=== PATIENT | female | born 1975 | race Caucasian/White ===

== ENCOUNTER 2016-06-17 12:18 | Emergency (ER) | payer OTHER | END 2016-06-17 12:36 | disposition left against medical advice (07) | LOC: UCCORT 12:18 | DX: R05 Cough (principal); Z88.1 Allergy status to other antibiotic agents; Z88.6 Allergy status to analgesic agent; Z53.20 Procedure and treatment not carried out because of patient's decision for unspecified reasons ==

== ENCOUNTER 2017-03-16 18:40 | Emergency (ER) | payer OTHER ==
[2017-03-16 19:12] VITALS: BP 103/66
--- NOTE | 2017-03-16 19:18 | UC ---
Throat Pain/Nasal Mundo HPI - HPI Summary HPI Summary: 42 year old female presents with complains sore throat, cough and chest congestion. - History of Current Complaint Chief Complaint: UCRespiratory Stated Complaint: SINUSES/COUGH Time Seen by Provider: 03/16/17 19:17 Hx Obtained From: Patient Hx Last Menstrual Period: 05/2015 states this is normal Severity: Moderate Pain Scale Used: 0-10 Numeric - 5 Cough: Nonproductive - Allergies/Home Medications Allergies/Adverse Reactions: Allergies Allergy/AdvReac Type Severity Reaction Status Date / Time Amoxicillin Allergy hives and Verified 03/16/17 19:06 vomiting Aspirin Allergy hives and Verified 03/16/17 19:06 vomiting PMH/Surg Hx/FS Hx/Imm Hx Previously Healthy: Yes - Surgical History Surgical History: Yes Surgery Procedure, Year, and Place: t/a as child. - Family History Known Family History: Positive: None - Social History Alcohol Use: None Substance Use Type: None Smoking Status (MU): Former Smoker When Did the Patient Quit Smoking/Using Tobacco: 2009 - Immunization History Most Recent Influenza Vaccination: NONE Most Recent Tetanus Shot: 2014 Review of Systems Constitutional: Negative Skin: Negative Eyes: Negative ENT: Sore Throat, Nasal Discharge, Sinus Congestion, Sinus Pain/Tenderness Respiratory: Shortness Of Breath, Cough Cardiovascular: Negative Gastrointestinal: Negative Genitourinary: Negative Motor: Negative Neurovascular: Negative Musculoskeletal: Negative Neurological: Negative Psychological: Negative All Other Systems Reviewed And Are Negative: Yes Physical Exam Triage Information Reviewed: Yes Vital Signs: Initial Vital Signs Temp 36.3 C 03/16/17 19:07 Pulse 87 03/16/17 19:07 Resp 18 03/16/17 19:07 BP 103/66 03/16/17 19:07 Pulse Ox 99 03/16/17 19:07 Vital Signs Reviewed: Yes Eye Exam: Normal ENT Exam: Normal Dental Exam: Normal Neck exam: Normal Neck: Positive: 1 Respiratory: Positive: Rhonchi, Wheezing Cardiovascular Exam: Normal Abdominal Exam: Normal Musculoskeletal Exam: Normal Neurological Exam: Normal Psychological Exam: Normal Skin Exam: Normal Throat Pain/Nasal Course/Dx - Differential Dx/Diagnosis Provider Diagnoses: cough. sinus congestion. fever Discharge - Discharge Plan Condition: Stable Disposition: HOME Prescriptions: Albuterol HFA INHALER* [Ventolin HFA Inhaler*] 1 puff INH Q6H PRN #1 mdi PRN Reason: Wheezing Azithromyxin MAGGIE (NF) [Z-Maggie (Zithromax) 250 mg tabs #6] 2 tab PO .TODAY, THEN 1 DAILY #6 tab Guaifenesin-Codeine [Cheratussin AC] 1 teasp PO BEDTIME PRN #120 ml MDD 5 ml PRN Reason: Cough Methylprednisolone [Medrol Dosepak 4 MG*] 4 mg PO .SEE MAGGIE INSTRUCTION #21 tab Patient Education Materials: Sinusitis (ED), Acute Cough (ED), Wheezing (ED) Referrals: CHUCK Reynolds [Primary Care Provider] -
== END 2017-03-16 19:36 | disposition home or self-care (01) ==
LOC: UCCORT 18:40
DX: R05 Cough (principal); R09.81 Nasal congestion; R50.9 Fever, unspecified; Z88.6 Allergy status to analgesic agent; Z88.1 Allergy status to other antibiotic agents; Z87.891 Personal history of nicotine dependence
CPT/HCPCS: 99212; G0463

== ENCOUNTER 2019-02-15 18:28 | Emergency (ER) | payer OTHER ==
[2019-02-15 18:41] VITALS: BP 142/64
--- NOTE | 2019-02-15 19:42 | UC ---
Throat Pain/Nasal Mundo HPI - HPI Summary HPI Summary: 44-year-old female presents with 3 day history of sinus headache, sinus pressure , nasal congestion, postnasal drip, bilateral ear itchiness, and occasional productive cough for green sputum. Patient states she has frequent sinus infections and this is how she typically presents. Denies fever, chills, sore throat, chest pain, shortness of breath, or wheezing. - History of Current Complaint Chief Complaint: UCRespiratory Stated Complaint: SINUS PRESSURE, COUGH Time Seen by Provider: 02/15/19 19:30 Hx Obtained From: Patient Hx Last Menstrual Period: irregular menses Pain Intensity: 9 - Allergies/Home Medications Allergies/Adverse Reactions: Allergies Allergy/AdvReac Type Severity Reaction Status Date / Time amoxicillin Allergy Hives, Verified 02/15/19 18:39 Vomiting aspirin Allergy Hives, Verified 02/15/19 18:39 Vomiting PMH/Surg Hx/FS Hx/Imm Hx Endocrine History: Diabetes, Thyroid Disease Cardiovascular History: Hypertension Psychological History: Depression - Surgical History Surgical History: Yes Surgery Procedure, Year, and Place: t/a as child. - Family History Known Family History: Positive: Non-Contributory - Social History Occupation: Unemployed Lives: With Family Alcohol Use: None Substance Use Type: None Smoking Status (MU): Former Smoker When Did the Patient Quit Smoking/Using Tobacco: 2009 - Immunization History Most Recent Influenza Vaccination: NONE Most Recent Tetanus Shot: 2014 Review of Systems All Other Systems Reviewed And Are Negative: Yes Constitutional: Negative: Fever, Chills Eyes: Negative: Drainage, Eye Redness ENT: Positive: Nasal Discharge, Sinus Congestion, Sinus Pain/Tenderness. Negative: Sore Throat, Ear Ache Respiratory: Positive: Cough. Negative: Shortness Of Breath Cardiovascular: Positive: Negative Gastrointestinal: Positive: Negative Genitourinary: Positive: Negative Musculoskeletal: Positive: Negative Neurological: Positive: Negative Is Patient Immunocompromised?: No Physical Exam - Summary Physical Exam Summary: GENERAL APPEARANCE: Alert and cooperative morbidly obese female who appears to be in no acute distress. EYES: Conjunctiva clear. No drainage. EARS: External auditory canals and tympanic membranes clear, hearing grossly intact. NOSE: Moderate nasal congestion. Frontal and maxillary sinus tenderness. THROAT: Pharyngeal cobblestoning. Surgically absent tonsils. Uvula midline. NECK: Neck supple, non-tender without lymphadenopathy. CARDIAC: Normal S1 and S2. No S3, S4 or murmurs. Rhythm is regular. There is no peripheral edema, cyanosis or pallor. Extremities are warm and well perfused. Capillary refill is less than 2 seconds. Peripheral pulses intact. LUNGS: Clear to auscultation without rales, rhonchi, wheezing or diminished breath sounds. ABDOMEN: Positive bowel sounds. Soft, nondistended, nontender. No guarding or rebound. No masses or hepatosplenomegally. MUSKULOSKELETAL: ROM intact to all extremities. No joint erythema or tenderness. Normal muscular development. Normal gait. SKIN: Skin normal color, texture and turgor with no lesions or eruptions. Triage Information Reviewed: Yes Vital Signs: Initial Vital Signs Temp 98.4 F 02/15/19 18:39 Pulse 93 02/15/19 18:39 Resp 16 02/15/19 18:39 BP 142/64 02/15/19 18:39 Pulse Ox 98 02/15/19 18:39 Vital Signs Reviewed: Yes Throat Pain/Nasal Course/Dx - Course Course Of Treatment: 44-year-old female presents with 3 day history of sinus headache, sinus pressure , nasal congestion, postnasal drip, bilateral ear itchiness, and occasional productive cough for green sputum. Patient states she has frequent sinus infections and this is how she typically presents. Denies fever, chills, sore throat, chest pain, shortness of breath, or wheezing. Afebrile. Vital signs stable. Patient had moderate nasal congestion with tender maxillary and frontal sinuses, pharyngeal cobblestoning, clear bowel breath sounds, and otherwise unremarkable exam. That her symptoms were consistent with an acute sinusitis which is typically of viral origin especially without fever however patient insists that she requires antibiotics whenever she gets a sinus infection. I reviewed the risks involved with treating a viral illness with antibiotics and patient continues wishes to pursue antibiotic treatment. We'll place her on a course of azithromycin and recommend symptomatic treatment including fluticasone nasal spray 2 sprays each nostril once daily. She is to follow-up with a primary care provider in 3 days if symptoms are not improving. Anticipatory guidance and warning symptoms reviewed with patient. Verbalizes understanding and agrees with plan of care. - Differential Dx/Diagnosis Differential Diagnosis/HQI/PQRI: Otitis Media, Pharyngitis, Sinusitis, Tonsillitis, URI Provider Diagnosis: Acute sinusitis Discharge ED - Sign-Out/Discharge Documenting (check all that apply): Patient Departure All imaging exams completed and their final reports reviewed: No Studies - Discharge Plan Condition: Stable Disposition: HOME Prescriptions: Azithromyxin MAGGIE (NF) [Z-Maggie (Zithromax) 250 mg tabs #6] 2 tab PO .TODAY, THEN 1 DAILY #6 tab Fluticasone NASAL SPRAY 50MCG* [Flonase NASAL SPRAY 50MCG*] 2 spray BOTH NARES DAILY #1 btl Incontinence Pad,Liner,Disp [Undergarment] 1 each MC SEE INSTRUCTIONS #1 packet Patient Education Materials: Sinusitis (ED) Referrals: Loreta Mcknight MD [Primary Care Provider] - 3 Days Additional Instructions: Your history and exam are consistent with a sinus infection. Sinus infections without fever are most often caused by a viral infection however you have requested treatment with an antibiotic. Start azithromycin 2 tabs today then 1 tab a day for the next 4 days. Drink plenty of fluids to avoid dehydration especially if you are running any fever. Use fluticasone (Flonase) nasal spray 2 sprays each nostril once daily to help with the congestion. Take over the counter acetaminophen (Tylenol) according to directions as needed for pain or fever. Follow up with your primary care provider in 3 days if symptoms persist. Seek immediate medical attention in the emergency room if you have fever greater than 100.5 F despite taking acetaminophen or ibuprofen, have chest pain , difficulty breathing, are unable to swallow, or have any worsening of symptoms. - Billing Disposition and Condition Condition: STABLE Disposition: Home
== END 2019-02-15 20:10 | disposition home or self-care (01) ==
LOC: UCCORT 18:28
DX: J01.90 Acute sinusitis, unspecified (principal); R05 Cough; E11.9 Type 2 diabetes mellitus without complications; I10 Essential (primary) hypertension; Z87.891 Personal history of nicotine dependence; Z88.0 Allergy status to penicillin; Z88.8 Allergy status to other drugs, medicaments and biological substances
CPT/HCPCS: 99212; G0463